=== PATIENT | male | born 1980 | race Two or more races ===

== ENCOUNTER 2019-01-22 20:35 | Emergency (ER) | payer SELFPAY ==
[~2019-01-22] VITALS: Ht 172.7 cm; Wt 86.0 kg
[2019-01-22] MEDS ORDERED: TETANUS, DIPHTHERIA, PERTUSSIS VAC/PF 0.5ML (>7YR OLD) IM ONE (21:00)
[2019-01-22 22:45] VITALS: BP 144/99
== END 2019-01-22 22:48 | disposition home or self-care (01) ==
LOC: ER 20:45
DX: S51.812A Laceration without foreign body of left forearm, initial encounter (principal); W45.8XXA Other foreign body or object entering through skin, initial encounter; Y93.89 Activity, other specified; Y92.89 Other specified places as the place of occurrence of the external cause; Y99.8 Other external cause status
CPT/HCPCS: 12001; 90471; 90715; 99283